=== PATIENT | male | born 2000 | race Caucasian/White ===

== ENCOUNTER 2019-09-28 20:47 | Emergency (ER) | payer OTHER ==
[~2019-09-28] VITALS: Ht 175.3 cm; Wt 95.5 kg
[2019-09-28 22:56] VITALS: BP 122/90
== END 2019-09-28 23:44 | disposition left against medical advice (07) ==
LOC: EMS 20:47
DX: Z03.818 Encounter for observation for suspected exposure to other biological agents ruled out (principal); Z53.21 Procedure and treatment not carried out due to patient leaving prior to being seen by health care provider